=== PATIENT | female | born 1975 | race Caucasian/White ===

== ENCOUNTER 2023-04-14 10:01 | Outpatient (CLI) | payer MEDICARE, MEDICAID, SELFPAY ==
--- NOTE | 2023-04-14 10:15 | RAD_ITS ---
STUDY: X-RAY - LUMBOSACRAL SPINE REASON FOR EXAM: Female, 47 years old. Postlaminectomy syndrome. Pain for weeks. TECHNIQUE: 6 view(s) of the lumbosacral spine, including lateral flexion and extension views, were obtained. COMPARISON: None FINDINGS: Hypoplastic ribs or a transitional vertebral body. Normal lumbar lordosis. No substantial scoliosis. Normal flexion and extension with no abnormal motion. 2 mm of anterolisthesis of L5 on the transitional vertebral body. Diffuse lower thoracic and lumbosacral facet sclerosis. Intervertebral disc space narrowing at L5-transitional vertebral body with small osteophytes. Surgical clips projected over the left upper quadrant of the abdomen. Normal otherwise visualized soft tissue structures. RAD/L/S Spine Comp/w Bending Views IMPRESSION: Normal flexion and extension without abnormal motion. Mild lower lumbosacral spondylosis as described. Electronically Signed: Grayson Marrero MD at 13:19 EST ,
[2023-04-14 12:02] LABS: Amphetamine Urine VISTA NEGATIVE (<1000 ng/mL); Barbiturate Urine VISTA NEGATIVE (< 200 ng/mL); Benzodiazepine Urine VISTA POSITIVE (< 200 ng/mL); Cocaine Urine VISTA NEGATIVE (< 300 ng/mL); Ecstacy Urine VISTA NEGATIVE (< 500 ng/mL); Methadone Urine VISTA NEGATIVE (< 300 ng/mL); PCP Urine VISTA NEGATIVE (< 25 ng/mL); THC Urine VISTA NEGATIVE (< 50 ng/mL); Vista UDS pH Range 6
== END 2023-04-14 23:59 | disposition home or self-care (01) ==
PROVIDERS: Referring Provider Anesthesiology Pain Medicine; Visit Provider Anesthesiology Pain Medicine
DX: M96.1 Postlaminectomy syndrome, not elsewhere classified (principal); Z79.891 Long term (current) use of opiate analgesic
CPT/HCPCS: 72114; 80307